=== PATIENT | male | born 1975 | race Caucasian/White ===

== ENCOUNTER → 2017-05-11 11:08 | Outpatient (CLI) | payer MEDICAID, SELFPAY ==
--- NOTE | 2017-05-11 11:10 | RAD_ITS ---
STUDY: X-RAY - RIGHT KNEE REASON FOR EXAM: Male, 42 years old. Pain. TECHNIQUE: 4 view(s) of the knee. COMPARISON: 01.11.16 FINDINGS: Normal visualized distal femur. Normal visualized proximal tibia and fibula. Normal proximal tibiofibular articulation. Normal medial femorotibial compartment. Normal lateral femorotibial compartment. Normal patellofemoral articulation. The soft tissue structures are unremarkable. RAD/Knee 4 or More Views IMPRESSION: Normal x-ray examination of the knee. Electronically Signed: Stefan Francis MD at 17:16 EDT , Service support ,
== END ==
PROVIDERS: Family Provider Internal Medicine; PCP Internal Medicine; Visit Provider Orthopaedic Surgery
DX: M25.561 Pain in right knee (principal)
CPT/HCPCS: 73564

== ENCOUNTER 2017-07-28 14:04 | Emergency (ER) | payer MEDICAID, SELFPAY ==
[2017-07-28 14:04] VITALS: BP 131/64; PULSE 85; RESP 18; TEMP 36.4; O2SAT 98; BMI 38.6
--- NOTE | 2017-07-28 14:18 | RAD_ITS ---
STUDY: X-RAY - RIGHT KNEE REASON FOR EXAM: Male, 42 years old. Pain and swelling. TECHNIQUE: 4 view(s) of the knee. COMPARISON: Comparison is made with prior examination May 11, 2017. FINDINGS: Normal visualized distal femur. Normal visualized proximal tibia and fibula. Normal proximal tibiofibular articulation. Normal medial femorotibial compartment. Normal lateral femorotibial compartment. Normal patellofemoral articulation. Large joint effusion. RAD/Knee 4 or More Views IMPRESSION: Large joint effusion. Electronically Signed: Pj Hardy MD at 14:44 EDT Tel [phone], Service support ,
--- NOTE | 2017-07-28 15:58 | ED.RN ---
PT WALKED INTO TO DR ROOMS AND BEGAN TO YELL AT DR BLOUNT. PT SWEARING AND DEMANDING DR PUT HIM OFF WORK UNTIL HIS PROBLEM WAS FIXED AND DEMANDED DR BLOUNT MAKE AN APPT FOR HIM. SECURITY CALLED TO DEPARTMENT. PT STATED TO DR BLOUNT YEA WE'LL TALK ABOUT THIS LATER. PT AMBULATED OUT OF DEPARTMENT WITHOUT DIFFICULTY, ESCORTED BY SECURITY.
--- NOTE | 2017-07-28 15:58 | ED.VISSUMM ---
- ER Visit Summary Date of Service: 07/28/17 Chief Complaint: Right knee pain History of Present Illness: The patient is a [address] Solis and Dr. Rivera. He reports that he has a history of surgery on his right knee by Dr. Sullivan. States that the pain never improved. He reports that 4 days ago he was mowing the ditch and felt a pop in his knee. He now has an aching pain that is 6 out of 10 with walking and is pain-free at rest after taking Excedrin. He denies any other injuries. Patient reports that he had an MRI [address] Rivera. He does not know the results of this. He has not made an appointment to see Dr. Rivera. Physical Examination: Patient walked out prior to a physical exam and refused to allow me to examine him. Test Results: Right knee x-ray shows a large joint effusion and no fracture. Emergency Department Course and Treatment: Patient refused therapeutic arthrocentesis. Treatment Plan: Patient reports that he is not working because of his knee and asked for a note for child support. I told him I would give him a note for 1-2 days. He became very upset and walked out of the emergency department. I instructed him to follow-up with Dr. Rivera for further evaluation and treatment. Disposition: Left prior to completion of treatment. Impression: 1. Right knee pain, acute on chronic. 2. Left prior to completion of treatment. This note was generated with [employer] dictation software. It may contain incorrect words, spelling, and punctuation that were not noted in review of the chart prior to signing ED Disposition - Plan for ED Patient: Chief Complaint: Lower Extremity Injury Referrals: Nydia Solis MD [Primary Care Provider] -
--- NOTE | 2017-07-28 16:02 | ED.RN ---
DR. BLOUNT IN TO DO PHYSICAL EXAM. PT C/O RT KNEE PAIN AND HAS HAD RECENT MRI. SWELLING AND C/O POPING NOW AFTER MOWING DITCH SAT PT THEN ASKING FOR EXCUSE SAYING COULD NOT WORK SO MY CHILD SUPPORT WOULD STAY OFF MY ASS WHEN EXPLAINED THAT WOULD ONLY GET 1 DAY FOR TODAY PT BLEW UP ON DR AKERS AFTER SAYING THEN I DONT NEED SHIT FROM YOU AND YOU BETTER BELIEVE ILL BE WRITING YOU UP FOR YOUR ATTITUDE. DR. BLOUNT LEFT ROOM THEN WITH PT STILL YELLING AFTER HIM AND FOLLOWING DOWN THE HALLWAY TO 'S DANIELLE YELLING. PT ESCORTED OUT WITH SECURITY WITHOUT TREATMENT D/T BEHAVIOUR
== END 2017-07-28 16:12 | disposition home or self-care (01) ==
PROVIDERS: Emergency Provider Emergency Medicine; Family Provider Internal Medicine; PCP Internal Medicine
DX: M25.561 Pain in right knee (principal); G89.29 Other chronic pain
CPT/HCPCS: 73564

== ENCOUNTER 2017-09-09 09:15 | Day surgery (SDC) | payer MEDICAID, SELFPAY ==
[2017-09-09] VITALS (8 sets, daily range): BP systolic 107–135; BP diastolic 52–85; PULSE 52–82; RESP 16–18; TEMP 36.5–36.7; O2SAT 95–100; BMI 38.1
[2017-09-09] MEDS: Cefazolin 2 GM in 0.9% Normal Saline 100 ML IV (01:14)
[2017-09-09] MEDS: Bupivacaine 0.25% 30 ML Vial (12:05)
[2017-09-09] MEDS: Mupirocin Ointment 22gm Tube 1 APPLIC (12:09)
--- NOTE | 2017-09-09 12:11 | PCM.DC.ORTHO ---
Discharge Diet: No Restrictions - Remove dressings in 4 days and apply Band-Aids to incision sites, weight-bear as tolerated, follow-up in 2 weeks for removal suture and initiation of physical therapy, use aspirin if not walking take aspirin 325 twice daily, call with concerns, may get incision wet after 4 days Allergies/Adverse Reactions: Allergies No Known Allergies Allergy (Verified 09/03/17 14:41) Medications to take at Discharge Albuterol Inhaler [Ventolin Hfa (SP)] 1 - 2 puff INHALATION Q4H PRN PRN 09/03/17 Oxycodone HCl/Acetaminophen [Percocet 5/325] 1 - 2 tablet PO Q6H PRN PRN 5 Days #42 tablet 09/09/17 The following prescriptions were given: Oxycodone HCl/Acetaminophen [Percocet 5/325] 1 - 2 tablet PO Q6H PRN PRN 5 Days #42 tablet PRN Reason: Pain Primary Care Physician: Nydia Solis MD [Primary Care Provider] - Test Results: Test results from this visit will be discussed in further detail at your follow-up appointment, if applicable.
--- NOTE | 2017-09-09 12:12 | PCM.OPRPT ---
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 MRI confirms patella fibrosis and questionable medial and/or lateral meniscus tears. Patient failed conservative treatment like to proceed with knee arthroscopy. Risks benefits and alternatives surgery discussed with patient. Risks including but not limited to blood loss, blood clot, infection, neurovascular injury, failure procedure, loss of life and loss of limb. Patient is aware like proceed with right knee arthroscopy repair is indicated. Operative note Patient seen and examined preoperative holding area. Right knee was marked. Patient brought to the operating room placed supine on the operating table. Sign, anesthesia, antibiotics were administered. Right leg was prepped and draped in usual sterile fashion with a tourniquet around his upper thigh. Timeout was performed. We then did use the my eye on his knee as we are working on physical and if limiting any into our practice we did use the my eye disposable scope for the first 3 minutes of the case. We then elevated exsanguinated and tourniquet was raised her pressure of 250 torr. We created our anterior lateral portal. We were unable to get into the pump patellofemoral joint due to the amount of scar tissue so he went to the medial joint line first we created an anterior medial portal under direct visualization. There is extensive fibrosis to the anteromedial recess we then inserted a shaver so we can actually visualize the medial meniscus. There was a small tear of the posterior horn of the medial meniscus but it was stable to probing to the left and intact. Then in able to and in order to visualize the lateral joint line we had to do extensive amount of resection of synovium in the anteromedial anterior lateral recesses of the knee. We then able to visualize the lateral meniscus there was a posterior horn tear of the lateral meniscus this was resected with this with a basket we then is reinserted a probe to ensure that that we had resected the unstable portion which we did have. The ACL PCL PCL were present within the notch. There is a 3 x 3 cm chondral defect in the medial femoral condyle and grade 2 fibrillated changes on the medial tibial plateau there is grade 2 fibrillated changes on the lateral tibial plateau and as well as the lateral femoral condyle as well. These were gently debrided. We then completed our extensive synovectomy in the lateral aspect of the knee we able to then visualize the medial and lateral joint recesses there are no loose bodies in the patellofemoral joint which was intact there is a little bit of 5 fibrillated changes at the inferior pole of patella and the trochlea but these were left alone. We then irrigated the knee with copious nonsterile saline. The tourniquet was deflated for total working time of thank you 23 minutes. The portals were closed with interrupted 4-0 nylon stitches sterile dressings were applied. Patient transferred to recovery room in stable condition. Patient tolerated procedure well there are no comp occasions. Next Postoperative note Hospital pharmacy has Percocet prescription Weight-bear as tolerated right leg Discharge instructions sent home with patient next Pictures given to family member next Aspirin as needed Follow up in 2 weeks in office Call with concerns Dragon disclaimer This note was generated with [employer] dictation software. It may contain incorrect words, spelling, and punctuation that were not noted in checking the note before signing.
[2017-09-09] MEDS: HYDROcodone Bitartrate/Apap 5/325 Tablet PO (13:38)
== END 2017-09-09 14:15 | disposition home or self-care (01) ==
LOC: SDC 09:16 → AC 09:17
PROVIDERS: Family Provider Internal Medicine; PCP Internal Medicine; Visit Provider Orthopaedic Surgery
PROC: (CPT 29870; principal; 2017-09-09 10:20)
DX: S83.241A Other tear of medial meniscus, current injury, right knee, initial encounter (principal); S83.281A Other tear of lateral meniscus, current injury, right knee, initial encounter; X58.XXXA Exposure to other specified factors, initial encounter; Y93.9 Activity, unspecified; Y92.9 Unspecified place or not applicable; Y99.9 Unspecified external cause status; F17.200 Nicotine dependence, unspecified, uncomplicated; Z86.19 Personal history of other infectious and parasitic diseases
CPT/HCPCS: 29876; 29881; J7120; J2405

== ENCOUNTER → 2017-10-29 13:32 | Outpatient (CLI) | payer MEDICAID, SELFPAY | PROVIDERS: Family Provider Internal Medicine; PCP Internal Medicine; Visit Provider Orthopaedic Surgery | DX: M25.562 Pain in left knee (principal) | CPT/HCPCS: 73564 ==

== ENCOUNTER → 2017-12-24 08:42 | Outpatient (CLI) | payer MEDICAID, SELFPAY ==
--- NOTE | 2017-12-24 08:44 | RAD_ITS ---
STUDY: X-RAY - RIGHT KNEE REASON FOR EXAM: Pain, 2 prior surgeries. TECHNIQUE: 4 view(s) of the knee. COMPARISON: Radiographs 07/28/2017. FINDINGS: Normal visualized distal femur. Normal visualized proximal tibia and fibula. Normal proximal tibiofibular articulation. Normal medial femorotibial compartment. Normal lateral femorotibial compartment. Normal patellofemoral articulation. There is a small joint effusion, decreased since the prior study. There is a small calcification posterior to the proximal fibular diaphysis. RAD/Knee 4 or More Views IMPRESSION: Small joint effusion. Electronically Signed: Dustin Ward MD at 13:54 EDT Tel , Service support ,
== END ==
PROVIDERS: Family Provider Internal Medicine; PCP Internal Medicine; Referring Provider Orthopaedic Surgery; Visit Provider Orthopaedic Surgery
DX: M25.561 Pain in right knee (principal)
CPT/HCPCS: 73564

== ENCOUNTER 2018-02-10 16:30 | Outpatient (RCR) | payer MEDICAID, SELFPAY ==
--- NOTE | 2018-01-18 19:39 | HP.PTEVAL_ITS ---
Patient's Visit Information RANJIT BLANC is a 43 year old M referred to Physical Therapy by Becky Barragan DO with a diagnosis of RIGHT PES ANSERINE BURSITIS. Date of Evaluation: 01/18/18 Physical Therapist: Vinh Liang PT, - Visit Plan Frequency: 2x /Week Duration: 4 Weeks Plan: MODLAITIES FOR PAIN RELEIVE,GENTLE GRADE PRE'S ,ROM. PATIENT HAD RECENT ARTHROSPIC RIGHT KNEE AUGUST 2017 AND PRIOR 2007 - Subjective Subjective: This 43 y/o male presents to physical therapy Right Pes Anserine Bursitis.Patient had arthroscopic knee surgery September 09 from menisectomy done by Dr Caruso ,then had 1st surgery arthroscopic 2016. Patient pain in right knee pain worsen because pain in left knee started . Patient seen [facility] did injection to pes anserine right knee and drained right knee. Symptoms worse with stairs kneeling,squatting,extended walking affects job demands. Patient pain affects QOL and gait/function.Denies parathesioa/tingling. VOCATION: umemployed. HOBBIES: hunting and fishing. SOCAIL: seperated - Pain Right Knee Pain Intensity (Out of 10): 8 Pain Intensity Range: 10 - Objective POSTURE: mild foward posture. GAIT: amnulates with antalgic gait with decrease stance time light left leg. NEURO: denies parathesia/tingling. PALPATION: pes aserine bursitis. AROM: 20 -125 degrees supine knee flexion. MMT: quads/hams 4-/5 ,hip flexion/abd 4-/5,ankle 5/5. PROPRIOCEPTION: poor. EDEMA: mild effusion. STAIRS: one step at a time - Special Tests R Knee Itz - Meniscus: Positive R Knee Apley - Meniscus: Positive R Knee Patellar Apprehension - PFS: Negative R Knee Patellar Grind - PFS: Negative - Goals Goal 1:: Independant with HEP. Goal Time Frame: 4-6 Weeks Goal 2:: Patient to decrease knee pain by 50% or greater to improve gait. Goal Time Frame: 4-6 Weeks Goal 3:: Patient improve gait with less antalgic gait with improved stance and swing phase. Goal Time Frame: 4-6 Weeks Goal 4:: Patient to improve knee ROM 10 -130 degrees supine knee flexion to improve gait. Goal Time Frame: 4-6 Weeks Goal 5:: Patient to improve LFES by 10 points to improve QOL. Goal 6:: Improve strength quads/hams 4/5 to improve gait and function - Rehabilitation Potential Physical Therapy Diagnosis: This patient has right knee pain h/o menisectomy AUGUST 2017 currentlly has pain ,tender pes anserine,decrease ROM, strength,gait deficits and decrease stairs thus benifit from skilled PT Rehabilitation Potential: Good - Anticipated Interventions Patient/Client Instruction: Educate patient on: Condition, Plan of Care For the Purpose of:: To decrease pain, To increase ROM, To improve muscle performance and motor function, To improve ability to perform ADL's, To increase tolerance to activity/condition/position, To improve ability of physical actions for home/community/work/leisure, To improve health of tissue, To decrease soft tissue restriction, To increase flexibility/ROM, To improve ability to perform tasks related to life management Therapeutic Exercise to Include: Strength training, Passive ROM, Active ROM Comment: KNEE For the Purpose of:: To decrease pain, To increase ROM, To improve ability of physical actions for home/community/work/leisure, To increase flexibility/ROM, To improve ability to perform tasks related to life management TENS: Yes IF ES: Yes Cryotherapy (ice pack, ice massage): Yes Thermo therapy (hot pack): Yes Ultrasound (thermal/non thermal): Yes For the Purpose of:: To decrease pain, To increase ROM, To improve nutrient delivery to tissue, To increase oxygenation perfusion, To improve health of tissue, To decrease soft tissue restriction Thank you for the opportunity to evaluate your patient. For Medicare and Medicare HMO plans, please review the plan of care and approve it. It will need to be FAXED BACK to us at [phone] for Medicare purposes. Please let me know if there are questions or concerns regarding this plan of care. Physician Signature:____ Date:
--- NOTE | 2018-03-01 15:43 | HP.PT.NRP ---
HP - Discharge Summary (1) - Patient Information RANJIT BLANC was seen in my office for initial evaluation on 01/18/18. The following Plan of Care was established for this patient: Initial Frequency: 2x /Week Initial Duration: 4 Weeks - Anticipated Interventions Patient/Client Instruction: Educate patient on: Condition, Plan of Care For the Purpose of:: To decrease pain, To increase ROM, To improve muscle performance and motor function, To improve ability to perform ADL's, To increase tolerance to activity/condition/position, To improve ability of physical actions for home/community/work/leisure, To improve health of tissue, To decrease soft tissue restriction, To increase flexibility/ROM, To improve ability to perform tasks related to life management Therapeutic Exercise to Include: Strength training, Passive ROM, Active ROM For the Purpose of:: To decrease pain, To increase ROM, To improve ability of physical actions for home/community/work/leisure, To increase flexibility/ROM, To improve ability to perform tasks related to life management TENS: Yes IF ES: Yes Cryotherapy (ice pack, ice massage): Yes Thermo therapy (hot pack): Yes Ultrasound (thermal/non thermal): Yes For the Purpose of:: To decrease pain, To increase ROM, To improve nutrient delivery to tissue, To increase oxygenation perfusion, To improve health of tissue, To decrease soft tissue restriction This patient was last seen in our office 02/10/18. Pertinent comments regarding their Physical therapy will appear below: Patient seen for PT for pes ansurine bursitus mainly US ,estim for pain but d/c d/c after not returning. At this point I will be discontinuing this patient from physical therapy. I would be happy to see this patient again in the future if found appropriate by the physician. Thank you! Vinh Liang, PT, Cert MDT, OCS
== END 2018-02-10 19:00 | disposition home or self-care (01) ==
LOC: PT 16:30
PROVIDERS: Family Provider Internal Medicine; PCP Internal Medicine; Referring Provider Orthopaedic Surgery; Visit Provider Orthopaedic Surgery
DX: Z98.890 Other specified postprocedural states (principal); M70.51 Other bursitis of knee, right knee
CPT/HCPCS: 97014; 97035; 97110; 97162; G0283

== ENCOUNTER 2018-06-02 22:54 | Emergency (ER) | payer SELFPAY ==
[2018-06-02 22:56] VITALS: BP 152/84; PULSE 124; RESP 18; TEMP 36.7; O2SAT 96; BMI 35.6
[2018-06-02] MEDS: Morphine 4 MG/ML Syringe IV (23:25)
[2018-06-02] MEDS: 0.9% Normal Saline 1,000 ML 1000 ML IV (23:25)
[2018-06-02] MEDS: Ondansetron 4 MG/2 ML Vial IV (23:25)
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
[2018-06-03 00:06] LABS: Absolute Lymphocyte Count 2.17 X10^3/ul (0.83-4.51); Absolute Neutrophil Count 13.7 X10^3/uL (2.0-7.7); Basophil# 0.02 X10^3/uL; Basophil% 0.1 % (0-1); Eosinophil# 0.02 X10^3/uL; Eosinophils% 0.1 % (0-5); Hematocrit 47.4 % (40-54); Lymphocyte # 2.17 X10^3/ul (4.0); Lymphocyte % 11.9 % (19-41); Mean Corp Hgb Conc 33.8 g/gl (32-36); Mean Corpuscular Hgb 31.2 pg (27.0-32.0); Mean Corpuscular Volume 92.4 fL (80-94); Mean Platelet Vol. 10.3 fl (6.2-12.0); Monocyte# 2.17 X10^3/uL; Monocyte% 11.9 % (0-10); Neutrophil # 13.74 X10^3/uL (2.7-7.7); Neutrophil % 75.7 % (47-70); Platelet Count 277 K/mm3 (150-450); RBC Distribution Width CV 13.7 % (11.6-14.6); RBC Distribution Width SD 46.2 fl (35.1-43.9); Red Blood Count 5.13 M/mm3 (4.6-6.2); White Blood Count 18.2 K/mm3 (4.4-11.0)
[2018-06-03 00:07] LABS: Differential Indicated SCAN CRITERIA MET; POSITIVE COUNT NO; POSITIVE DIFFERENTIAL YES; POSITIVE MORPHOLOGY NO
[2018-06-03 00:08] LABS: AST(SGOT) 148 U/L (15-37); Alanine Aminotransfer ALT/SGPT 73 U/L (16-61); Albumin, Serum 4.1 g/dL (3.2-5.0); Alkaline Phosphatase 99 U/L (45-117); Anion Gap 7 (5-15); BUN 13 mg/dL (7-18); BUN/Creat Ratio 12.6 RATIO (10-20); Calcium,Total 8.7 mg/dL (8.5-10.1); Chloride 108 mmol/L (98-107); Creatinine, Serum 1.03 mg/dL (0.70-1.30); EST Glomerular Filtration Rate 83 mL/min (>60); Est Glom Filt Rate - Afr Amer 101 mL/min (>60); Estimated Creatinine Clearance 100.45 ml/min; Glucose 135 mg/dL (74-106); Lipase 33 U/L (73-393); Potassium 3.4 mmol/L (3.5-5.1); Protein, Total 8.1 g/dL (6.4-8.2); Sodium Level 141 mmol/L (136-145)
[2018-06-03 00:13] LABS: CPK Total, Creatine Kinase 3553 U/L (39-308)
[2018-06-03 00:31] LABS: Differential Comment SCANNED; Platelet Estimate ADEQUATE (ADEQ); Red Cell Morphology NORM C+C NORMAL (NORM C&C)
[2018-06-03 00:45] LABS: Bacteria 0 SEEN /hpf (None Seen)
[2018-06-03 00:52] LABS: Color, Urine Yellow (Yellow); Glucose, Dipstick Normal (Normal); Leukocyte Esterase-Dipstick 25 /ul (Negative); Nitrite-Dipstick Negative (Negative); Occult Blood-Urine 10 /ul (Negative); Protein-Dipstick 30 mg/dl (Negative); Specific Gravity, Urine 1.015 (1.002-1.030); Urine Clarity Clear (Clear); Urine Urobilinogen 4 mg/dl (Normal)
[2018-06-03 00:53] LABS: Ketone-Dipstick 150 mg/dl (Negative); Urine Bilirubin Dipstick 1 mg/dL (Negative)
[2018-06-03 00:54] LABS: Mucous, Urine 2+ /hpf (<or=2+); Red Blood Cells-Urine 0-5 SEEN /hpf (0-5); Squamous Epithelial Cells - UA 0-5 SEEN /hpf (0-5); White Blood Cells 5-10 SEEN /hpf (0-5)
--- NOTE | 2018-06-03 01:03 | PCM.HP.STD ---
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 H/O arthroscopic knee surgery Z98.890 H/O arthroscopy of shoulder Z98.890 History of tonsillectomy Z90.89 Smoking Status: Current every day smoker - Physical Exam Vital Signs Temp Pulse Resp BP Pulse Ox 98.0 F 124 H 18 152/84 H 96 06/02/18 22:56 06/02/18 22:56 06/02/18 22:56 06/02/18 22:56 06/02/18 22:56 Oxygen Delivery Method Room Air Weight: 119.295 kg Body Mass Index (BMI) 35.6 Laboratory Tests Past 24 Hrs 06/02/18 06/02/18 06/02/18 23:25 23:25 23:25 WBC 18.2 H RBC 5.13 Hgb 16.0 Hct 47.4 MCV 92.4 MCH 31.2 MCHC 33.8 RDW 13.7 RDW Differential 46.2 H Plt Count 277 MPV 10.3 Immature Gran % (Auto) 0.300 Neut % (Auto) 75.7 H Lymph % (Auto) 11.9 L [place] % (Auto) 11.9 H Eos % (Auto) 0.1 Baso % (Auto) 0.1 Absolute Neuts (auto) 13.7 H Absolute Lymphs (auto) 2.17 Total Counted Not Reportable Differential Comment SCANNED Diff Path Review May foll Platelet Estimate ADEQUATE RBC Morphology NORM C+C Sodium 141 Potassium 3.4 L Chloride 108 H Carbon Dioxide 26.0 Anion Gap 7 BUN 13 Creatinine 1.03 Estim Creat Clear Calc 100.45 Est GFR (MDRD) Af Amer 101 Est GFR (MDRD) Non-Af 83 BUN/Creatinine Ratio 12.6 Glucose 135 H Calcium 8.7 Total Bilirubin 1.60 H AST 148 H ALT 73 H Alkaline Phosphatase 99 Total Creatine Kinase 3553 H Total Protein 8.1 Albumin 4.1 Globulin 4.0 Albumin/Globulin Ratio 1.0 Lipase 33 L Urine Color Urine Clarity Urine pH Ur Specific [place] Urine Protein Urine Glucose (UA) Urine Ketones Urine Occult Blood Urine Nitrite Urine Bilirubin Urine Urobilinogen Ur Leukocyte Esterase Urine RBC Urine WBC Ur Squamous Epith Cells Urine Bacteria Urine Mucus 06/03/18 00:25 WBC RBC Hgb Hct MCV MCH MCHC RDW RDW Differential Plt Count MPV Immature Gran % (Auto) Neut % (Auto) Lymph % (Auto) [place] % (Auto) Eos % (Auto) Baso % (Auto) Absolute Neuts (auto) Absolute Lymphs (auto) Total Counted Differential Comment Diff Path Review Platelet Estimate RBC Morphology Sodium Potassium Chloride Carbon Dioxide Anion Gap BUN Creatinine Estim Creat Clear Calc Est GFR (MDRD) Af Amer Est GFR (MDRD) Non-Af BUN/Creatinine Ratio Glucose Calcium Total Bilirubin AST ALT Alkaline Phosphatase Total Creatine Kinase Total Protein Albumin Globulin Albumin/Globulin Ratio Lipase Urine Color Yellow Urine Clarity Clear Urine pH 6.0 Ur Specific [place] 1.015 Urine Protein 30 H Urine Glucose (UA) Normal Urine Ketones 150 H Urine Occult Blood 10 H Urine Nitrite Negative Urine Bilirubin 1 H Urine Urobilinogen 4 H Ur Leukocyte Esterase 25 H Urine RBC 0-5 SEEN Urine WBC 5-10 SEEN Ur Squamous Epith Cells 0-5 SEEN Urine Bacteria 0 SEEN Urine Mucus 2+
[2018-06-03 01:07] VITALS: BP 129/98; PULSE 110; RESP 21; O2SAT 93
[2018-06-03 01:52] VITALS: BP 129/98; PULSE 116; RESP 20; O2SAT 96
--- NOTE | 2018-06-03 01:53 | ED.RN ---
PT IS TO BE TRANSFERRED TO [facility]. PT LEFT AMA DUE TO NOT WANTING TO GO BY [facility]. PT STATES HE WILL GO UP THERE HIMSELF. IV TAKEN OUT. AMA PAPER SIGNED.
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
[2018-06-03 11:23] LABS: Pathologist Review Reviewed
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
== END 2018-06-03 01:45 | disposition left against medical advice (07) ==
LOC: ED 23:23
PROVIDERS: Emergency Provider Emergency Medicine; Family Provider Internal Medicine; PCP Internal Medicine
DX: S00.01XA Abrasion of scalp, initial encounter (principal); S30.810A Abrasion of lower back and pelvis, initial encounter; T79.6XXA Traumatic ischemia of muscle, initial encounter; V86.69XA Passenger of other special all-terrain or other off-road motor vehicle injured in nontraffic accident, initial encounter; Y93.89 Activity, other specified; Y92.9 Unspecified place or not applicable; Y99.9 Unspecified external cause status; R10.32 Left lower quadrant pain; K59.00 Constipation, unspecified; Z72.0 Tobacco use; Z79.82 Long term (current) use of aspirin; Z86.19 Personal history of other infectious and parasitic diseases
CPT/HCPCS: 70450; 71046; 74177; 80053; 81001; 82550; 83690; 85025; 96361; 96374; 96375; 99284; Q9967; J2405

== ENCOUNTER 2018-06-09 16:40 | Emergency (ER) | payer SELFPAY ==
[2018-06-09 16:41] VITALS: BP 114/69; PULSE 92; RESP 18; TEMP 36.4; BMI 38.5
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
[2018-06-09 18:06] LABS: Absolute Neutrophil Count 5.8 X10^3/uL (2.0-7.7); Basophil# 0.05 X10^3/uL; Basophil% 0.6 % (0-1); Eosinophil# 0.32 X10^3/uL; Eosinophils% 3.7 % (0-5); Hematocrit 44.9 % (40-54); Hemoglobin 14.8 g/dl (13.0-16.5); Lymphocyte % 19.7 % (19-41); Mean Corpuscular Hgb 30.4 pg (27.0-32.0); Mean Corpuscular Volume 92.2 fL (80-94); Monocyte# 0.81 X10^3/uL; Monocyte% 9.4 % (0-10); Neutrophil # 5.76 X10^3/uL (2.7-7.7); Neutrophil % 66.5 % (47-70); Platelet Count 295 K/mm3 (150-450); RBC Distribution Width CV 13.7 % (11.6-14.6); RBC Distribution Width SD 46.2 fl (35.1-43.9); Red Blood Count 4.87 M/mm3 (4.6-6.2); White Blood Count 8.7 K/mm3 (4.4-11.0)
[2018-06-09 18:08] LABS: POSITIVE COUNT NO; POSITIVE DIFFERENTIAL NO; POSITIVE MORPHOLOGY NO
[2018-06-09 18:08] LABS: Bacteria 0 SEEN /hpf (None Seen); Mucous, Urine 0 SEEN /hpf (<or=2+); Red Blood Cells-Urine 0 SEEN /hpf (0-5); Squamous Epithelial Cells - UA 0 SEEN /hpf (0-5); White Blood Cells 0 SEEN /hpf (0-5)
[2018-06-09 18:10] LABS: Color, Urine Yellow (Yellow); Glucose, Dipstick Normal (Normal); Ketone-Dipstick 5 mg/dl (Negative); Leukocyte Esterase-Dipstick 25 /ul (Negative); Nitrite-Dipstick Negative (Negative); Occult Blood-Urine Negative /ul (Negative); Protein-Dipstick 15 mg/dl (Negative); Urine Bilirubin Dipstick Negative (Negative); Urine Clarity Sl. Cloudy (Clear); Urine Urobilinogen 1 mg/dl (Normal)
[2018-06-09 18:16] LABS: BUN 15 mg/dL (7-18); Creatinine, Serum 0.92 mg/dL (0.70-1.30); Estimated Creatinine Clearance 112.46 ml/min; Glucose 83 mg/dL (74-106)
[2018-06-09 18:17] LABS: AST(SGOT) 63 U/L (15-37); Alanine Aminotransfer ALT/SGPT 83 U/L (16-61); Albumin, Serum 3.5 g/dL (3.2-5.0); Alkaline Phosphatase 90 U/L (45-117); Anion Gap 4 (5-15); BUN/Creat Ratio 16.3 RATIO (10-20); Bilirubin, Direct 0.16 mg/dL (0.00-0.30); Calcium,Total 8.5 mg/dL (8.5-10.1); Chloride 109 mmol/L (98-107); EST Glomerular Filtration Rate 95 mL/min (>60); Est Glom Filt Rate - Afr Amer 115 mL/min (>60); Globulin 3.8 g/dL (2.2-4.2); Lipase 98 U/L (73-393); Potassium 3.7 mmol/L (3.5-5.1); Protein, Total 7.3 g/dL (6.4-8.2); Sodium Level 142 mmol/L (136-145)
[2018-06-09 18:25] LABS: CPK Total, Creatine Kinase 168 U/L (39-308)
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
[2018-06-09 18:35] VITALS: BP 116/70; PULSE 70; RESP 16; O2SAT 96
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
== END 2018-06-09 19:25 | disposition home or self-care (01) ==
PROVIDERS: Emergency Provider Emergency Medicine; Family Provider Internal Medicine; PCP Internal Medicine
DX: S70.12XA Contusion of left thigh, initial encounter (principal); V86.95XA Unspecified occupant of 3- or 4- wheeled all-terrain vehicle (ATV) injured in nontraffic accident, initial encounter; Y93.9 Activity, unspecified; Y92.9 Unspecified place or not applicable; Y99.9 Unspecified external cause status; M54.9 Dorsalgia, unspecified; R51 Headache; R19.7 Diarrhea, unspecified; K59.00 Constipation, unspecified; Z72.0 Tobacco use; Z79.82 Long term (current) use of aspirin; Z86.19 Personal history of other infectious and parasitic diseases
CPT/HCPCS: 70450; 73552; 80048; 80076; 81001; 82550; 83690; 85025; 99285; A4216

== ENCOUNTER → 2018-07-19 13:36 | Outpatient (CLI) | payer SELFPAY ==
[2018-07-19 14:22] LABS: Hematocrit 47.9 % (40-54); Hemoglobin 16.1 g/dl (13.0-16.5); Mean Corp Hgb Conc 33.6 g/gl (32-36); Mean Corpuscular Hgb 30.1 pg (27.0-32.0); Mean Corpuscular Volume 89.7 fL (80-94); Mean Platelet Vol. 11.6 fl (6.2-12.0); Platelet Count 249 K/mm3 (150-450); RBC Distribution Width CV 13.6 % (11.6-14.6); RBC Distribution Width SD 44.6 fl (35.1-43.9); Red Blood Count 5.34 M/mm3 (4.6-6.2); White Blood Count 8.6 K/mm3 (4.4-11.0)
[2018-07-19 14:28] LABS: Scan Indicated on CBC? Y/N NO
== END ==
LOC: LABSPEC 13:39
PROVIDERS: Family Provider Internal Medicine; PCP Internal Medicine
DX: Z13.89 Encounter for screening for other disorder (principal)
CPT/HCPCS: 85027

== ENCOUNTER 2022-07-28 07:39 | Emergency (ER) | payer MEDICAID, SELFPAY ==
[2022-07-28 07:40] VITALS: BP 145/76; PULSE 78; RESP 16; TEMP 36.6; O2SAT 98; BMI 38.6
--- NOTE | 2022-07-28 07:47 | EDS_ITS ---
HPI History of Present Illness Chief Complaint: Ear Problem Informant: patient Onset/Context/Timing Onset: Yesterday Context: Sudden Onset Timing: Continuous Quality: Severe pain Location: Left ear Current Severity: Severe Maximum Severity: Severe Worsened by: Nothing Relieved by: Nothing Associated Symptoms Associated Symptoms: No associated symptoms Narrative Narrative: Patient is a 47-year-old male presents with abrupt onset of left ear pain after he blew his nose. He denies fever, chills night sweats. He denies rhinorrhea, congestion postnasal drainage. No sore throat. Denies cough or shortness of breath. He denies nausea or vomiting. He denies headache, photophobia, neck pain or neck stiffness. He denies rash. He denies allergies to antibiotics. He states he got a ride to the emergency. Prior similar symptoms: No Recent Illness/Hospitalization: No PFSH PFSH Medical History no medical history no medical history Home Medications aspirin 325 mg tablet 325 mg PO DAILY@0800 06/03/18 [History Last Taken Unknown] amoxicillin 500 mg tablet 500 mg PO TID #30 tabs 07/28/22 [Rx Last Taken Unknown] naproxen 500 mg tablet 500 mg PO BID #10 tabs 07/28/22 [Rx Last Taken Unknown] Allergy/AdvReac Type Severity Reaction Status Date / Time No Known Allergies Allergy Verified 07/28/22 07:39 Family History (Updated 05/11/17 @ 11:17 by Esteban Sánchez) Mother Breast cancer Surgical History Compartment syndrome of left lower extremity H/O arthroscopic knee surgery H/O arthroscopy of shoulder History of tonsillectomy Social History (Updated 07/28/22 @ 07:[address] Dominik Maynard MD) household members: none Smoking Status: Current some day smoker tobacco type: cigarettes ROS ROS ED Constitutional Constitutional ED: Denies chills, fever(s), subjective, sweats or weight loss Eyes Eyes: Denies blurry vision, change in vision or diplopia ENT ENT ED: Reports ear pain left; Denies rhinorrhea or sore throat Cardiovascular Cardiovascular: Denies chest pain Respiratory/Chest Respiratory/Chest: Denies cough, dyspnea or dyspnea on exertion Gastrointestinal Gastrointestinal: Denies nausea or vomiting Musculoskeletal Musculoskeletal: Denies neck pain Neurologic Neurologic: Denies headache(s) or paresthesias Hematologic/Lymphatic Hematologic/Lymphatic: Reports systems reviewed and no addt'l complaints, except as documented EXAM Physical Exam Const Vital Signs: 07/28/22 07:40 Temperature 97.8 F Temperature Source Temporal Pulse Rate 78 Respiratory Rate 16 Blood Pressure 145/76 H Blood Pressure Mean 99 Pulse Ox 98 Oxygen Delivery Method Room Air Positive well nourished, well developed and obese General Appearance ED: well developed; Negative for cyanotic, diaphoretic, NAD or pallor Nutritional Appearance: obese HEENT Reports moist mucous membranes HEENT Narrative: Head is atraumatic normocephalic. Ears normal. Left TM is erythematous bulging with distortion of landmarks. Eyes PERRL and EOMs intact bilaterally General Eye ED: Negative for pale conjunctiva or scleral icterus Neck no lymphadenopathy, supple and no JVD Resp normal respiratory effort and clear to auscultation bilaterally Cardio regular rate, regular rhythm, S1 normal heart sound, S2 normal heart sound and no murmurs Neuro oriented x3, CN's II-XII intact bilaterally and no sensory deficits noted Sensorium / Orientation: alert Motor Exam: strength 5/5 throughout Psych mental status grossly normal Skin no rashes or lesions noted, no wounds and skin turgor normal General Skin Exam: Negative for jaundice or pallor MDM MDM MDM Narrative Medical decision making narrative: Patient has otitis media suppurativa. Clinically there is no concern for meningitis. Since patient has a ride he was treated with p.o. NSAID, opiate analgesia and amoxicillin. He was discharged prescription for NSAID and amoxicillin. History & Record Review Additional record(s) reviewed:: No prior records Discharge Plan Triage Chief Complaint: Ear Problem ED Provider: Dominik Maynard Dx/Rx/DC Orders Clinical Impression: Otitis media, suppurative Instructions: ED Otitis Media Antibiotic ... Prescriptions: New amoxicillin 500 mg tablet 500 mg PO TID Qty: 30 0RF naproxen 500 mg tablet 500 mg PO BID Qty: 10 0RF No Action aspirin 325 MG tablet 325 mg PO DAILY@0800 Primary Care Provider: Care Physician,No Primary Referrals: Nydia Solis MD [Med Staff - Crane Service Technician] - 3-5 Days if not improving Disposition Disposition: Home, Self Care
[2022-07-28] MEDS: Ibuprofen 600 MG Tablet PO (08:01)
[2022-07-28] MEDS: HYDROcodone Bitartrate/Apap 5/325 Tablet PO (08:01)
[2022-07-28] MEDS: AMOXICILLIN 500 MG CAPSULE PO (08:02)
== END 2022-07-28 08:16 | disposition home or self-care (01) ==
PROVIDERS: Emergency Provider Emergency Medicine; Visit Provider Emergency Medicine
DX: H66.40 Suppurative otitis media, unspecified, unspecified ear (principal); F17.210 Nicotine dependence, cigarettes, uncomplicated; E66.9 Obesity, unspecified
CPT/HCPCS: 99283

== ENCOUNTER 2022-12-26 16:13 | Emergency (ER) | payer MEDICAID, SELFPAY ==
[2022-12-26 16:14] VITALS: BP 147/83; PULSE 89; RESP 16; TEMP 36.6; O2SAT 97; BMI 38.1
--- NOTE | 2022-12-26 17:19 | US_ITS ---
STUDY: VENOUS DOPPLER ULTRASOUND - BILATERAL LOWER EXTREMITIES REASON FOR EXAM: Male, 47 years old. BILAT PAIN REDNESS SWELLING TECHNIQUE: Ultrasound evaluation of the deep vein system to include corral-scale imaging and compression was performed. Corral-scale imaging and Doppler sonographic evaluation, including duplex spectral analysis and qualitative color flow sonography, was performed. COMPARISON: 06/16/2016 FINDINGS: RIGHT LEG Common Femoral Vein: Normal compression, spontaneity and augmentation. Normal color Doppler. Common Femoral Vein/Greater Saphenous Junction: Normal compression, spontaneity and augmentation. Normal color Doppler. Deep Femoral Vein: Normal compression, spontaneity and augmentation. Normal color Doppler. Femoral Proximal: Normal compression, spontaneity and augmentation. Normal color Doppler. Femoral Middle: Normal compression, spontaneity and augmentation. Normal color Doppler. Femoral Distal: Normal compression, spontaneity and augmentation. Normal color Doppler. Popliteal Vein: Normal compression, spontaneity and augmentation. Normal color Doppler. Posterior Tibial Vein: Normal compression, spontaneity and augmentation. Normal color Doppler. Peroneal Vein: Normal compression, spontaneity and augmentation. Normal color Doppler. LEFT LEG Common Femoral Vein: Normal compression, spontaneity and augmentation. Normal color Doppler. Common Femoral Vein/Greater Saphenous Junction: Normal compression, spontaneity and augmentation. Normal color Doppler. Deep Femoral Vein: Normal compression, spontaneity and augmentation. Normal color Doppler. Femoral Proximal: Normal compression, spontaneity and augmentation. Normal color Doppler. Femoral Middle: Normal compression, spontaneity and augmentation. Normal color Doppler. Femoral Distal: Normal compression, spontaneity and augmentation. Normal color Doppler. Popliteal Vein: Normal compression, spontaneity and augmentation. Normal color Doppler. Posterior Tibial Vein: Normal compression, spontaneity and augmentation. Normal color Doppler. Peroneal Vein: Normal compression, spontaneity and augmentation. Normal color Doppler. US/Venous Duplex Imag/Alexandre Extrem IMPRESSION: Normal venous Doppler ultrasound of the bilateral lower extremities. Electronically Signed: Hansel Archibald MD at 18:47 EDT ,
[2022-12-26] MEDS: morphine 8 MG/ML Syringe IV (17:21)
--- NOTE | 2022-12-26 17:29 | EX.ED.DYSGE1 ---
HPI History of Present Illness Chief Complaint: Cellulitis Informant: patient Narrative Narrative: Patient is a 47-year-old male who reports history of torn ACL in his right knee that required surgery (plans on following with [facility]), leg swelling and hepatitis presenting with worsening leg swelling, left worse than right, worsening redness of his lower extremities (left worse than right) and increased right knee pain. He also reports subjective fevers. Denies any shortness of breath or difficulty breathing. Notes that he has been been much more active lately as he has been having to move and has been moving everything himself. He reports the past few days the swelling has been worsening and now he is having increased redness especially in the left leg. That is particularly painful. He is starting to get numbness in his left second third and fourth toes however he still can feel them. Denies any trauma. He also states has been having a headache for the past few days which is not really responding to ibuprofen or Tylenol. Denies vision changes. Denies any sick contacts. Patient reports intermittent tobacco use, marijuana use and dabs. Denies any opioid or methamphetamine use. PFSH PFSH Home Medications aspirin 325 mg tablet 325 mg PO DAILY@0800 06/03/18 [History Last Taken Unknown] amoxicillin 500 mg tablet 500 mg PO TID #30 tabs 07/28/22 [Rx Last Taken Unknown] naproxen 500 mg tablet 500 mg PO BID #10 tabs 07/28/22 [Rx Last Taken Unknown] cephalexin 500 mg capsule 500 mg PO Q6 #40 CAPSULES 12/26/22 [Rx Last Taken Unknown] furosemide 20 mg tablet (Lasix) 20 mg PO DAILY #7 tabs 12/26/22 [Rx Last Taken Unknown] hydrocodone-acetaminophen 5-325mg 5mg-325mg 1 tab PO Q8H PRN pain 3 days #10 tabs 12/26/22 [Rx Last Taken Unknown] sulfamethoxazole 800 mg-trimethoprim 160 mg tablet (Bactrim DS) 1 tab PO BID 10 days #20 tabs 12/26/22 [Rx Last Taken Unknown] Allergy/AdvReac Type Severity Reaction Status Date / Time No Known Allergies Allergy Verified 07/28/22 07:39 Family History Mother Breast cancer Surgical History Compartment syndrome of left lower extremity H/O arthroscopic knee surgery H/O arthroscopy of shoulder History of tonsillectomy Social History household members: none Smoking Status: Current some day smoker tobacco type: cigarettes ROS ROS ED Constitutional Constitutional ED: Reports chills and fever(s) Eyes Eyes: Denies blurry vision or change in vision ENT ENT ED: Denies sore throat Cardiovascular Cardiovascular: Denies chest pain Respiratory/Chest Respiratory/Chest: Denies cough or dyspnea Gastrointestinal Gastrointestinal: Denies abdominal pain, nausea or vomiting Musculoskeletal Musculoskeletal: Reports other Details: right knee pain, B/L lower leg pain ; Denies arthralgias Integumentary Reports rash Neurologic Neurologic: Reports headache(s) and paresthesias LUE (2nd-4th toes ) Psychiatric Psychiatric: Denies anxiety Hematologic/Lymphatic Hematologic/Lymphatic: Denies easy bleeding or easy bruising EXAM Physical Exam Const Vital Signs: 12/26/22 16:14 12/26/22 17:42 12/26/22 19:00 Temperature 97.9 F 98 F Temperature Source Temporal Oral Pulse Rate 89 89 85 Respiratory Rate 16 16 16 Blood Pressure 147/83 H 147/83 H 135/76 H Blood Pressure Mean 104 104 95 Pulse Ox 97 97 96 Oxygen Delivery Method Room Air Room Air Room Air 12/26/22 20:09 Temperature Temperature Source Pulse Rate 85 Respiratory Rate 16 Blood Pressure 145/84 H Blood Pressure Mean 104 Pulse Ox 96 Oxygen Delivery Method Positive well nourished and well developed General Appearance ED: well developed and NAD HEENT Reports moist mucous membranes Eyes PERRL Neck supple Neck Narrative: No nuchal rigidity Chest Wall inspection of chest normal and palpation of chest normal Resp normal respiratory effort and clear to auscultation bilaterally Cardio regular rate, regular rhythm and no murmurs GI normal to inspection, nondistended, normoactive bowel sounds and non-tender Extremity Extremity Narrative: Bilateral pitting edema of the lower extremities, left slightly worse than the right. Erythema and warmth of the left lower extremity up to the level of the knee. There is scattered erythema that is more chronic appearing on the right lower extremity. Patient has pain with full range of motion of the right knee but does not have short arc range of motion pain. No crepitus or cords appreciated. 2+ right DP pulse. 1+ left DP pulse that is easily dopplerable. General Extremety ED: Yes edema and tenderness General Extremity: edema Neuro oriented x3 Sensorium / Orientation: alert Motor Exam: Negative for general weakness Psych mental status grossly normal Skin Skin Narrative: Erythema and warmth of the left lower extremity concerning for cellulitis. Patient has scattered healing abrasions on his extremities and face consistent mostly with skin picking. There is some mild but more chronic appearing erythema scattered on the right lower extremity. No associated lymphangitic streaking. MDM MDM MDM Narrative Medical decision making narrative: Patient evaluated for worsening swelling of his lower extremities and worsening redness especially of the left lower extremity. Addition he is having ongoing right knee pain as well as headaches. Patient peers nontoxic in no acute distress. Physical exam is consistent with cellulitis of the left lower extremity as well as bilateral peripheral edema and likely some chronic venous stasis changes of the lower legs. He otherwise does not appear fluid overloaded with no JVD, no respiratory symptoms and no crackles on exam. I do not think this is particularly cardiogenic. Patient does tell me that he supposed be on Lasix but does not have any. He is also been on his feet more so suspect he has worsening dependent edema. CBC is normal with no signs of infection with white blood cell counts or shift. CMP shows mild transaminitis which appears to be baseline. His CK is normal. Do not suspect an acute vascular abnormality. He has good peripheral pulses. I do not suspect necrotizing fasciitis. He does not have pain out of proportion. There is no crepitus. On serial exam he does not have any rapid progression of the skin changes. His BNP is normal and again I do not think this is a heart failure issue. Patient is given a dose of morphine and then Toradol. He does have improvement of symptoms. Will treat with Keflex and Bactrim and also put the patient on a burst of Lasix to help with the swelling. Compression wrapping applied to the right knee as well as to the left lower extremity to help with the edema and pain. Counseled on elevating his legs is much as possible. Venous duplex is negative with no findings consistent with DVT. He does have a fluid collection behind his right knee however I do not suspect septic joint and this could be a Infante's cyst or associated with his known ACL tear. He already follows with Ortho and can follow-up with them for this as well. Patient is given referral for primary care doctor does not have 1. Will be given a short course of pain medicine to help with the symptoms the next few days as ibuprofen and Tylenol have not been helpful. Given return precaution. At this time I do not think he requires admission for IV antibiotics or diuresis. Lab Data Attestation: I reviewed the patient's lab results. Labs: Laboratory Results - last 24 hr 12/26/22 17:25 WBC 6.8 RBC 4.81 Hgb 14.4 Hct 44.4 MCV 92.3 MCH 29.9 MCHC 32.4 RDW Std Deviation 45.7 H RDW Coeff of Janina 13.5 Plt Count 359 MPV 9.8 Immature Gran % (Auto) 0.100 Neut % (Auto) 62.9 Lymph % (Auto) 22.7 Desha % (Auto) 9.9 Eos % (Auto) 3.5 Baso % (Auto) 0.9 Absolute Neuts (auto) 4.3 Absolute Lymphs (auto) 1.54 Nucleated RBC % 0 Sodium 139 Potassium 3.8 Chloride 104 Carbon Dioxide 29.0 Anion Gap 6 BUN 12 Creatinine 0.86 Estim Creat Clear Calc 115.30 Est GFR (MDRD) Af Amer 122 Est GFR (MDRD) Non-Af 101 BUN/Creatinine Ratio 14.0 Glucose 107 H Lactic Acid 0.7 Calcium 8.9 Total Bilirubin 0.80 AST 65 H ALT 84 H Alkaline Phosphatase 103 Total Creatine Kinase 175 B-Natriuretic Peptide 15.9 Total Protein 8.0 Albumin 3.6 Globulin 4.4 H Albumin/Globulin Ratio 0.8 L Radiography Diagnostic Testing: Clinical Impression(s) from Imaging Studies Venous Duplex 12/26/22 17:19 IMPRESSION: Normal venous Doppler ultrasound of the bilateral lower extremities. Electronically Signed: Hansel Archibald MD at 18:47 EDT , Discharge Plan Triage Chief Complaint: Cellulitis ED Provider: Lyn Hughes Dx/Rx/DC Orders Clinical Impression: Leg edema, Cellulitis of left lower extremity without foot Instructions: ED Cellulitis, ED Peripheral Edema, Bilateral Prescriptions: New sulfamethoxazole-trimethoprim [Bactrim DS] 800-160 mg tablet 1 tab PO BID 10 Days Qty: 20 0RF cephalexin 500 mg capsule 500 mg PO Q6 Qty: 40 0RF hydrocodone-acetaminophen 5-325 mg tablet 1 tab PO Q8H PRN (Reason: pain) 3 Days Qty: 10 0RF furosemide [Lasix] 20 mg tablet 20 mg PO DAILY Qty: 7 0RF No Action aspirin 325 MG tablet 325 mg PO DAILY@0800 amoxicillin 500 mg tablet 500 mg PO TID Qty: 30 0RF naproxen 500 mg tablet 500 mg PO BID Qty: 10 0RF Primary Care Provider: Care Physician,No Primary Referrals: Lopez Redding MD [Med Staff - [facility]] - As soon as possible Jing Bills [Non-Staff] - As soon as possible Care Physician,No Primary [Primary Care Provider] - Activity Restrictions/Additional Instructions: You may also take ibuprofen for pain. Try to elevate your legs is much as possible. Take the Lasix in the morning. This will help with the swelling of your legs. Please also follow-up with your orthopedist. Take the entire course of antibiotics as prescribed. Disposition Disposition: Home, Self Care Discharge Date/Time: 12/26/22 20:11
[2022-12-26 17:40] LABS: Absolute Lymphocyte Count 1.54 X10^3/uL (0.83-4.51); Absolute Neutrophil Count 4.3 X10^3/uL (2.0-7.7); Basophil# 0.06 X10^3/uL; Basophil% 0.9 % (0-1); Eosinophil# 0.24 X10^3/uL; Eosinophils% 3.5 % (0-5); Hematocrit 44.4 % (40-54); Hemoglobin 14.4 g/dL (13.0-16.5); Lymphocyte # 1.54 X10^3/ul (0.83-4.51); Lymphocyte % 22.7 % (19-41); Mean Corp Hgb Conc 32.4 g/dL (32-36); Mean Corpuscular Hgb 29.9 pg (27.0-32.0); Mean Corpuscular Volume 92.3 fL (80-94); Mean Platelet Vol. 9.8 fl (6.2-12.0); Monocyte# 0.67 X10^3/uL; Monocyte% 9.9 % (0-10); NRBC Flagged by Analyzer 0 % (0-5); Neutrophil # 4.25 X10^3/uL (2.7-7.7); Neutrophil % 62.9 % (47-70); Platelet Count 359 K/mm3 (150-450); RBC Distribution Width CV 13.5 % (11.6-14.6); RBC Distribution Width SD 45.7 fl (35.1-43.9); Red Blood Count 4.81 M/mm3 (4.6-6.2); White Blood Count 6.8 K/mm3 (4.4-11.0)
[2022-12-26 17:42] VITALS: BP 147/83; PULSE 89; RESP 16; TEMP 36.6; O2SAT 97
[2022-12-26 17:59] LABS: ALB/GLOB Ratio 0.8 RATIO (0.9-2.4); AST(SGOT) 65 U/L (15-37); Alanine Aminotransfer ALT/SGPT 84 U/L (16-61); Albumin, Serum 3.6 g/dL (3.2-5.0); Alkaline Phosphatase 103 U/L (45-117); Anion Gap 6 (5-15); BUN 12 mg/dL (7-18); CPK Total, Creatine Kinase 175 U/L (39-308); Calcium,Total 8.9 mg/dL (8.5-10.1); Chloride 104 mmol/L (98-107); Creatinine, Serum 0.86 mg/dL (0.70-1.30); EST Glomerular Filtration Rate 101 mL/min (>60); Est Glom Filt Rate - Afr Amer 122 mL/min (>60); Globulin 4.4 g/dL (2.2-4.2); Glucose 107 mg/dL (74-106); Potassium 3.8 mmol/L (3.5-5.1); Sodium Level 139 mmol/L (136-145)
[2022-12-26 18:00] LABS: Lactic Acid 0.7 mmol/L (0.4-1.9)
[2022-12-26 18:10] LABS: BNP,B-Type NATRIURETIC PEPTIDE 15.9 pg/mL (0-100)
[2022-12-26 19:00] VITALS: BP 135/76; PULSE 85; RESP 16; O2SAT 96
[2022-12-26] MEDS: Cephalexin 250 MG Capsule 500 MG PO (20:05)
[2022-12-26] MEDS: Smz/Tmp Ds Tablet 1 TABLET PO (20:05)
[2022-12-26] MEDS: Ketorolac 15 MG/ML Vial IV (20:05)
[2022-12-26 20:09] VITALS: BP 145/84; PULSE 85; RESP 16; O2SAT 96
== END 2022-12-26 20:11 | disposition home or self-care (01) ==
PROVIDERS: Emergency Provider Emergency Medicine; Visit Provider Emergency Medicine
DX: L03.116 Cellulitis of left lower limb (principal); F17.210 Nicotine dependence, cigarettes, uncomplicated; M25.561 Pain in right knee; R60.0 Localized edema; R51.9 Headache, unspecified; Z79.82 Long term (current) use of aspirin; F12.90 Cannabis use, unspecified, uncomplicated
CPT/HCPCS: 80053; 82550; 83605; 83880; 85025; 93970; 96374; 96375; 99284; A4216